=== PATIENT | male | born 1950 | race African-American/Black ===

== ENCOUNTER 2022-02-03 12:17 | Emergency (ER) | payer OTHER ==
[~2022-02-03] VITALS: Ht 167.6 cm; Wt 64.9 kg
[2022-02-03 12:17] VITALS: BP 137/84; TEMP 98.6
== END 2022-02-03 12:52 | disposition home or self-care (01) ==
LOC: ED 12:17
DX: S60.572A Other superficial bite of hand of left hand, initial encounter (principal); X58.XXXA Exposure to other specified factors, initial encounter; Y93.H2 Activity, gardening and landscaping; Y92.89 Other specified places as the place of occurrence of the external cause
CPT/HCPCS: 99282